=== PATIENT | female | born 1990 | race Two or more races ===

== ENCOUNTER → 2017-06-14 | Outpatient (CLI) | payer BC ==
[~2017-06-14] MED LIST: CEPH500 PO; Crutch1 EACH MISC; DOCU100 PO; HYDACE5325 PO; IBUP600 PO; IBUP800 PO; Norco 5-325 Ta1 EACH PO; PROM25 PO; RXHYD5325 PO; Vibramycin100 MG PO; WOMEN'S DAILY1 EACH PO; Zithromax250 MG PO
[2017-06-15 13:29] LABS: Appearance, Urine Clear (Clear); Bilirubin, Urine Neg (Neg); Blood, Urine Neg (Neg); Color, Urine Yellow (P-Yellow); Glucose Qualitative, Urine Neg (Neg); Ketones, Urine Neg (Neg); Leukocyte Esterase, Urine Neg (Neg); Nitrite, Urine Neg (Neg); Protein, Urine Neg (Neg); Source, Urine Clean Catch; Urobilinogen, Urine NORM (Normal)
[2017-06-15 15:30] LABS: Candida species (DNA Probe) Negative (NEGATIVE); G. vaginalis (DNA Probe) Negative (NEGATIVE); T. vaginalis (DNA Probe) Negative (NEGATIVE)
== END ==
LOC: LAB SHORT 19:00 → LAB 19:00
PROVIDERS: Nurse Practitioner Family
DX: R35.0 Frequency of micturition (principal)
CPT/HCPCS: 81003; 87480; 87510; 87660

== ENCOUNTER → 2018-10-29 | Outpatient (CLI) | payer SELFPAY ==
[2018-10-29 19:12] LABS: Bilirubin, Urine Neg (Neg); Blood, Urine Neg (Neg); Glucose Qualitative, Urine Neg (Neg); Ketones, Urine 1+ (Neg); Leukocyte Esterase, Urine 1+ (Neg); Nitrite, Urine Neg (Neg); Protein, Urine Neg (Neg); Specific Gravity, Urine 1.025 (1.003-1.022); Urobilinogen, Urine NORM (Normal)
[2018-10-29 19:21] LABS: Appearance, Urine Clear (Clear); Color, Urine Yellow (P-Yellow)
[2018-10-29 19:22] LABS: Bacteria Mod /hpf; Red Blood Cells, Urine 0-2 /hpf (0-2); Squamous Epithelial Cells Few /hpf (Few)
[2018-10-30 14:17] LABS: Candida species (DNA Probe) Negative (NEGATIVE); G. vaginalis (DNA Probe) Positive (NEGATIVE); T. vaginalis (DNA Probe) Negative (NEGATIVE)
== END | disposition home or self-care (01) ==
LOC: LAB 18:35 → LAB SHORT 18:35
PROVIDERS: Advanced Practice Midwife
DX: N89.8 Other specified noninflammatory disorders of vagina (principal); R35.0 Frequency of micturition
CPT/HCPCS: 81001; 87086; 87480; 87510; 87660

== ENCOUNTER → 2019-01-28 | Outpatient (CLI) | payer BC ==
[2019-01-29 09:45] LABS: Candida species (DNA Probe) Negative (NEGATIVE); G. vaginalis (DNA Probe) Positive (NEGATIVE); T. vaginalis (DNA Probe) Negative (NEGATIVE)
== END | disposition home or self-care (01) ==
LOC: LAB 14:19 → LAB SHORT 14:19
PROVIDERS: Advanced Practice Midwife
DX: N76.0 Acute vaginitis (principal)
CPT/HCPCS: 87480; 87510; 87660

== ENCOUNTER → 2019-04-25 | Outpatient (CLI) | payer BC ==
[2019-04-26 11:34] LABS: Candida species (DNA Probe) Negative (NEGATIVE); G. vaginalis (DNA Probe) Negative (NEGATIVE); T. vaginalis (DNA Probe) Negative (NEGATIVE)
== END | disposition home or self-care (01) ==
LOC: LAB SHORT 09:30 → LAB 09:30
PROVIDERS: Advanced Practice Midwife
DX: N76.0 Acute vaginitis (principal)
CPT/HCPCS: 87480; 87510; 87660

== ENCOUNTER → 2019-06-08 | Outpatient (CLI) | payer BC | END | disposition home or self-care (01) | LOC: LAB EV 10:10 → LAB SHORT 10:10 | DX: J22 Unspecified acute lower respiratory infection (principal) | CPT/HCPCS: U0002 ==

== ENCOUNTER 2019-09-16 03:20 | Emergency (ER) | payer OTHER, BC ==
[~2019-09-16] VITALS: Ht 157.5 cm; Wt 63.5 kg
== END 2019-09-16 04:29 | disposition home or self-care (01) ==
LOC: ER 03:20
DX: S66.912A Strain of unspecified muscle, fascia and tendon at wrist and hand level, left hand, initial encounter (principal); Z88.0 Allergy status to penicillin; X50.1XXA Overexertion from prolonged static or awkward postures, initial encounter
CPT/HCPCS: 73090; 99283-25

== ENCOUNTER → 2020-01-09 | Outpatient (CLI) | payer OTHER, BC ==
[~2020-01-09] MED LIST changes: +AZIT250 PO; +CEFD300 PO; +NAPROXEN500 MG PO
[2020-01-10 13:37] LABS: CORONAVIRUS (COVID19) CSH-NRL Negative (Negative)
== END | disposition home or self-care (01) ==
LOC: LAB SHORT 09:38
PROVIDERS: Family Medicine
DX: J03.90 Acute tonsillitis, unspecified (principal); Z20.828 Contact with and (suspected) exposure to other viral communicable diseases
CPT/HCPCS: 87081; U0003

== ENCOUNTER 2020-01-11 12:05 | Emergency (ER) | payer BC ==
[~2020-01-11] VITALS: Ht 157.5 cm; Wt 65.3 kg
[~2020-01-11 12:05] MED LIST changes: -AZIT250 PO; -CEFD300 PO; -NAPROXEN500 MG PO
[2020-01-11] MEDS ORDERED: AZIT250 PO (13:16)
[2020-01-11] MEDS ORDERED: NAPROXEN500 MG PO (13:16)
[2020-01-11 13:36] LABS: BASOPHILS ABSOLUTE AUTO 0.04 K/mm3 (0.00-0.23); BASOPHILS PERCENT AUTO 1 % (0-2); EOSINOPHILS PERCENT AUTO 0 % (0-6); Hematocrit 36.2 % (33.0-51.0); Hemoglobin 11.3 g/dL (11.5-16.0); IMMATURE GRAN ABSOLUTE AUTO 0.02 K/mm3 (0.00-0.10); IMMATURE GRAN PERCENT AUTO 0 % (0-1); LYMPHOCYTES ABSOLUTE AUTO 1.42 K/mm3 (0.84-5.20); LYMPHOCYTES PERCENT AUTO 18 % (21-46); MONOCYTES ABSOLUTE AUTO 0.73 K/mm3 (0.16-1.47); MONOCYTES PERCENT AUTO 9 % (4-13); Mean Corpuscular HGB 26.1 pg (26.0-34.0); Mean Corpuscular HGB Conc 31.2 g/dL (31.5-36.5); Mean Corpuscular Volume 84 fL (80-100); Mean Platelet Volume 10.8 fL (9.1-12.4); NEUTROPHILS ABSOLUTE AUTO 5.64 K/mm3 (1.96-9.15); NEUTROPHILS PERCENT AUTO 72 % (41-73); Platelet Count 245 K/mm3 (150-400); RDW Coefficient Variation 13.8 % (11.7-14.2); RDW Standard Deviation 42.7 fL (35.1-46.3); Red Blood Cell Count 4.33 M/mm3 (3.80-5.20); White Blood Cell Count 7.85 K/mm3 (4.00-11.30)
[2020-01-11 13:48] LABS: Anion Gap 5 mmol/L (6-16); Blood Urea Nitrogen 7 mg/dL (8-24); Bun/Creatinine Ratio 12.5 (12.0-20.0); CO2, Blood 26 mmol/L (21-32); Chloride, Blood 108 mmol/L (98-108); Creatinine, Blood 0.56 mg/dL (0.40-1.00); Glomerular Filtration Rate >60 (60-); Glucose, Blood 85 mg/dL (70-99); Potassium, Blood 3.9 mmol/L (3.5-5.5); Sodium, Blood 139 mmol/L (136-145)
[2020-01-11] MEDS ORDERED: CEFD300 PO (14:27)
== END 2020-01-11 14:36 | disposition home or self-care (01) ==
LOC: ER 12:05
PROVIDERS: Physician Assistant
DX: J02.0 Streptococcal pharyngitis (principal); F17.210 Nicotine dependence, cigarettes, uncomplicated; Z88.0 Allergy status to penicillin; Z87.442 Personal history of urinary calculi
CPT/HCPCS: 36415; 70491; 80048; 85025; 86308; 87430; 96374-59; 96375; 99285-25; J1100; J1885; Q9967

== ENCOUNTER 2020-03-30 08:05 | Day surgery (SDC) | payer BC ==
[~2020-03-30] VITALS: Ht 157.5 cm; Wt 65.2 kg
[~2020-03-30 08:05] MED LIST changes: +AZIT250 PO; +CEFD300 PO; +NAPROXEN500 MG PO
--- NOTE | 2020-03-30 11:13 | NUR ---
03/30/20 1113 PEDRO PABLO MADRIGAL PT TO STEP DOWN, SBA TO CHAIR. IV PATENT. PT REPORTS THROAT IS VERY SORE AND AVOIDING TALKING. PT MEDICATED WITH IV FENTANYL PER MD ORDERS. REPORT NAUSEA AND MEDICATED WITH IV ZOFRAN PER MD ORDERS. PT TOLERATING ICE CHIPS AND SIPS, POPSICLE. ENGAGED IN DC TEACHING AND ALL QUESTIONS ASKED AND ANSWERED. PT DC AMB W/IV REMOVED.
== END 2020-03-30 11:08 | disposition home or self-care (01) ==
LOC: ORSCSDS 08:05
PROVIDERS: Otolaryngology
PROC: 0CTPXZZ Resection of Tonsils, External Approach (ICD-10-PCS; principal; 2020-03-30 09:15)
DX: J35.01 Chronic tonsillitis (principal); Z87.891 Personal history of nicotine dependence; Z79.899 Other long term (current) drug therapy
CPT/HCPCS: 88304; A9270; J1100; J1885; J2250; J2370; J2405; J2704; J3010; J7120

== ENCOUNTER → 2022-11-04 | Outpatient (CLI) | payer BC ==
[2022-11-05 09:10] LABS: HIV AB/P24 AG SCREEN Non Reactive (Non Reactive)
== END | disposition home or self-care (01) ==
LOC: LAB 15:33 → LAB SHORT 15:33
PROVIDERS: Chiropractor
DX: Z20.9 Contact with and (suspected) exposure to unspecified communicable disease (principal)
CPT/HCPCS: 86803; 87389